=== PATIENT | male | born 1970 | race Caucasian/White ===

== ENCOUNTER 2020-05-09 12:20 | Emergency (ER) | payer OTHER | END 2020-05-09 12:55 | disposition home or self-care (01) | LOC: JVIRT 12:20 | DX: Z03.818 Encounter for observation for suspected exposure to other biological agents ruled out (principal) | CPT/HCPCS: C9803; Q3014-GT; U0003 ==

== ENCOUNTER 2021-05-07 14:58 | Emergency (ER) | payer OTHER ==
[2021-05-07 15:31] VITALS: BMI 33.2
[2021-05-07] MEDS ORDERED: CASIRIVIMAB/IMDEVIMAB 10 ML in SODIUM CHLORIDE 100 ML IVPB ONE (15:58)
[2021-05-07 16:34] LABS: BASO % 0.4 % (0-2.0); EOS % 2.5 % (0-4.5); HEMATOCRIT 43.7 % (35.4-49); HEMOGLOBIN 15.3 GM/dL (11.7-16.9); LYMPH % 22.8 % (8-40); MCH 31.2 pg (25.7-33.7); MCHC 34.9 g/dl (32.0-35.9); MEAN CELL VOLUME 89.3 fl (80-96); MEAN PLT VOLUME 8.6 fl (7.5-11.1); MONO % 7.2 % (3.8-10.2); NEUT % 67.1 % (42.8-82.8); PLATELET COUNT 204 10^3/uL (134-434); RDW 13.5 % (11.9-15.9); WHITE BLOOD COUNT 8.4 K/mm3 (4.0-10.0)
[2021-05-07 16:48] LABS: CALCIUM 9.2 mg/dL (8.5-10.1)
[2021-05-07 16:49] LABS: ALBUMIN 4.2 g/dl (3.4-5.0); BLOOD UREA NITROGEN 11.8 mg/dL (7-18)
[2021-05-07 16:54] LABS: BILIRUBIN,TOTAL 0.5 mg/dL (0.2-1); TOT PROT 7.8 g/dl (6.4-8.2)
[2021-05-07 18:33] VITALS: BP 130/73; PULSE 98; TEMP 99.4
== END 2021-05-07 19:00 | disposition home or self-care (01) ==
LOC: JER 14:58 → JCOVINFU 14:58
DX: U07.1 COVID-19 (principal)
CPT/HCPCS: 36415; 80053; 85025; 99284-25; Q0240

== ENCOUNTER 2023-01-17 05:10 | Day surgery (SDC) | payer OTHER ==
[2023-01-15 10:57] VITALS: BMI 31.8
[2023-01-17 08:30] VITALS: TEMP 98
[2023-01-17 08:42] VITALS: RESP 18
[2023-01-17 09:01] VITALS: BP 119/66; PULSE 81
== END 2023-01-17 09:03 | disposition home or self-care (01) ==
LOC: JASU-ENDO 05:10
PROVIDERS: ATTEND Internal Medicine Gastroenterology
PROC: 0DB98ZX Excision of Duodenum, Via Natural or Artificial Opening Endoscopic, Diagnostic (ICD-10-PCS; 2023-01-17)
PROC: 0DB78ZX Excision of Stomach, Pylorus, Via Natural or Artificial Opening Endoscopic, Diagnostic (ICD-10-PCS; 2023-01-17)
PROC: 0DB28ZX Excision of Middle Esophagus, Via Natural or Artificial Opening Endoscopic, Diagnostic (ICD-10-PCS; 2023-01-17)
PROC: 0DB38ZX Excision of Lower Esophagus, Via Natural or Artificial Opening Endoscopic, Diagnostic (ICD-10-PCS; 2023-01-17)
PROC: 0DJD8ZZ Inspection of Lower Intestinal Tract, Via Natural or Artificial Opening Endoscopic (ICD-10-PCS; principal; 2023-01-17 08:00)
DX: Z12.11 Encounter for screening for malignant neoplasm of colon (principal); K57.30 Diverticulosis of large intestine without perforation or abscess without bleeding; Z83.71 Family history of colonic polyps; K21.00 Gastro-esophageal reflux disease with esophagitis, without bleeding